=== PATIENT | female | born 1965 | race African-American/Black ===

== ENCOUNTER 2016-09-29 11:26 | Inpatient (IN) | payer OTHER ==
[2016-09-29 12:31] VITALS: BMI 18.6
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
[2016-09-29] MEDS ORDERED: ACETAMINOPHEN 325 MG TABLET (FP) PO PRN (16:44)
[2016-09-29] MEDS ORDERED: MAG HYDROX/AL HYDROX/SIMETH 30 ML UNIT-DOSE CUP PO PRN (16:44)
[2016-09-29] MEDS ORDERED: hydrOXYzine PAMOATE 50 MG CAPSULE (FP) PO PRN (16:44)
[2016-09-29] MEDS ORDERED: NICOTINE POLACRILEX 2 MG GUM BC PRN (16:44)
[2016-09-29] MEDS ORDERED: MAGNESIUM CITRATE 300 ML BOTTLE PO PRN (16:44)
[2016-09-29] MEDS ORDERED: MENTHOL/PHENOL 1 EACH UD MM PRN (16:44)
[2016-09-29] MEDS ORDERED: P-EPHED 60MG/TRIPROLIDI 2.5MG TABLET PO PRN (16:44)
[2016-09-29] MEDS ORDERED: LOPERAMIDE HCL 2 MG CAPSULE PO PRN (16:44)
[2016-09-29] MEDS ORDERED: MAGNESIUM HYDROX 2400MG/30ML ORAL SUSPENSION 30 ML CUP PO PRN (16:44)
[2016-09-29] MEDS ORDERED: guaiFENesin/D-METHORPHAN HB 10 ML UNIT-DOSE CUPS PO PRN (16:44)
[2016-09-29] MEDS ORDERED: diphenhydrAMINE HCL 50 MG CAPSULE PO PRN (16:44)
[2016-09-29] MEDS ORDERED: TUBERCULIN PPD 5 TU/0.1ML VIAL ID ONE (18:39)
[2016-09-29] MEDS: THIAMINE HCL 100 MG TABLET (FP) PO SCH (22:10)
[2016-09-29] MEDS: RITONAVIR 100 MG TABLET PO SCH (22:11)
[2016-09-29] MEDS: NICOTINE 14 MG/24 HOURS TOPICAL PATCH TD SCH (22:12)
[2016-09-29] MEDS ORDERED: PT OWN MED DRAWER 7, Y5N ONE ×2 (23:56→23:58)
[2016-09-29] MEDS: ALBUTEROL SO4 6.7 GM HFA INHALER IH PRN (23:57)
[2016-09-30] MEDS: LEVOTHYROXINE NA 25 MCG TABLET (FP) PO SCH (06:59)
[2016-09-30] MEDS: DRONABINOL 2.5 MG CAPSULE PO SCH ×2 (06:59→16:35)
[2016-09-30] MEDS ORDERED: PT OWN MED DRAWER 7, Y5N ONE (09:10)
--- NOTE | 2016-09-30 09:17 | EKG ---
Test Reason : Blood Pressure : / mmHG Vent. Rate : 078 BPM Atrial Rate : 078 BPM P-R Int : 158 ms QRS Dur : 100 ms QT Int : 396 ms P-R-T Axes : 080 073 066 degrees QTc Int : 451 ms NORMAL SINUS RHYTHM NORMAL ECG NO PREVIOUS ECGS AVAILABLE Confirmed by BERNADETTE BALLARD MD ([id number]) on 09/30/2016 9:16:51 AM Referred By: Tiara Driver Confirmed By:BERNADETTE BALLARD MD
[2016-09-30 09:57] LABS: MCH 32.5 pg (25.7-33.7); MCHC 32.4 g/dl (32.0-36.0); MEAN CELL VOLUME 100.2 fl (80-96); MEAN PLT VOLUME 9.4 fl (7.5-11.1); PLATELET COUNT 364 K/MM3 (134-434); RDW 15.4 % (11.6-15.6)
--- NOTE | 2016-09-30 10:03 | HP ---
Psychiatrist Admission - Data Date of interview: 09/30/16 Admission source: [facility]. Identifying data: This is the second admission to [address] [place] [address] for this 51 years old single AA female,no children,resides in supportive housing,on [place]. Medical History: Significant for HIV+,AIDS,Hypothyroidism, Psychiatric History: First contact with psychiatrist was about 4 yo when her has been dx with Lung Cancer.She started to see a private psychiatrist to address her depressed mood,anxiety,sleeping difficulties.Patient was placed on Zoloft with some response.She reports non compliance with medications .Patient was attending [facility] for a while.No psychiatric care ,obtaining her medications from PCP. Physical/Sexual Abuse/Trauma History: denies Vital Signs: Vital Signs - 24 hr 09/29/16 09/30/16 09/30/16 12:28 00:30 03:30 Temperature 97.2 F L Pulse Rate 86 Respiratory 18 17 16 Rate Blood Pressure 153/84 09/30/16 07:22 Temperature 98.1 F Pulse Rate 76 Respiratory 18 Rate Blood Pressure 136/87 Allergies/Adverse Reactions: Allergies Allergy/AdvReac Type Severity Reaction Status Date / Time honey Allergy Hives Verified 09/29/16 13:37 No Known Drug Allergies Allergy Verified 09/29/16 18:23 NKDA Allergy Uncoded 09/29/16 13:38 Date of last physical exam: 09/29/16 Concur with the findings of this exam: Yes - Substance Abuse/Tx History Hx Alcohol Use: Yes (socially) Hx Substance Use: Yes (reports st cocaine/crack since 27 yo,marijuana since school age (on Marinol) Substance Use Type: Alcohol, Cocaine, Marijuana Hx Substance Use Treatment: Yes (completed [place] 3-4 yo) - Admission Criteria Previous failed treatment: Yes Poor recovery environment: Yes Comorbidities: Yes Lacks judgement: Yes Mental Status Exam - Mental Status Exam Alert and Oriented to: Time, Place, Person Cognitive Function: Grossly Intact Patient Appearance: Unkempt Mood: Sad, Anxious, Expansive, Irritable Affect: Mood Congruent Patient Behavior: Cooperative Speech Pattern: Clear Voice Loudness: Normal Thought Process: Goal Oriented Thought Disorder: Not Present Hallucinations: Denies Suicidal Ideation: Denies Homicidal Ideation: Denies Insight/Judgement: Fair Sleep: Difficulty falling asleep Appetite: Weight loss Muscle strength/Tone: Normal Gait/Station: Normal Psychiatric Findings - Problem List ([place] 1, 2,3) (1) COPD with chronic bronchitis Current Visit: Yes Status: Chronic (2) Cannabis dependence, uncomplicated Current Visit: Yes Status: Chronic (3) Cocaine dependence, uncomplicated Current Visit: Yes Status: Chronic (4) Essential hypertension Current Visit: Yes Status: Chronic (5) HIV positive Current Visit: Yes Status: Chronic (6) Hypothyroidism Current Visit: Yes Status: Chronic Qualifiers: Hypothyroidism type: acquired Qualified Code(s): E03.9 - Hypothyroidism, unspecified (7) Nicotine dependence Current Visit: Yes Status: Chronic Qualifiers: Nicotine product type: cigarettes Substance use status: uncomplicated Qualified Code(s): F17.210 - Nicotine dependence, cigarettes, uncomplicated (8) Pinched nerve in neck Current Visit: Yes Status: Chronic (9) Substance induced mood disorder Current Visit: Yes Status: Chronic - Initial Treatment Plan Initial Treatment Plan: Restart Seroquel 25 mg po bid and 150 mg po hs,start Lexapro 5 mg po daily.Will monitor progress.
[2016-09-30 10:26] LABS: ALBUMIN 3.8 g/dl (3.4-5.0); BILIRUBIN,TOTAL 0.4 mg/dL (0.2-1.0); CALCIUM 9.9 mg/dL (8.5-10.1); COCKROFT - GAULT 47.974; CREATININE 1.1 mg/dL (0.55-1.02); TOT PROT 8.5 g/dl (6.4-8.2)
[2016-09-30] MEDS ORDERED: QUEtiapine FUMARATE 25 MG TABLET (FP) PO SCH (10:30)
[2016-09-30] MEDS: PRENATAL VITAMINS W/ FOLIC ACID TABLET (FP) PO SCH (10:41)
[2016-09-30] MEDS: DARUNAVIR ETHANOLATE 800 MG TAB PO SCH (10:41)
[2016-09-30] MEDS: PANTOPRAZOLE 40 MG TABLET (FP) PO SCH (10:41)
[2016-09-30] MEDS: LISINOPRIL 20 MG TABLET (FP) PO SCH (10:42)
[2016-09-30] MEDS: NICOTINE 14 MG/24 HOURS TOPICAL PATCH TD SCH (10:42)
[2016-09-30] MEDS: RITONAVIR 100 MG TABLET PO SCH (11:10)
[2016-09-30] MEDS: ESCITALOPRAM OXALATE 10 MG TABLET (FP) PO SCH (12:03)
[2016-09-30 14:36] LABS: URINE APPEARANCE CLEAR; URINE BILIRUBIN NEGATIVE (NEGATIVE); URINE BLOOD NEGATIVE (NEGATIVE); URINE COLOR YELLOW; URINE GLUCOSE (UA) NEGATIVE (NEGATIVE); URINE KETONE NEGATIVE (NEGATIVE); URINE NITRITE NEGATIVE (NEGATIVE); URINE UROBILINOGEN NEGATIVE E.U./dl (0.2-1.0)
[2016-09-30 14:38] LABS: URINE LEUK ESTERASE 3+ (NEGATIVE); URINE PROTEIN 1+ (NEGATIVE)
[2016-09-30 14:40] LABS: URINE MUCUS RARE; URINE RBC 1 /hpf (0-3); URINE WBC 69 /hpf (3-5)
[2016-09-30] MEDS: QUEtiapine FUMARATE 25 MG TABLET (FP) PO SCH (15:35)
[2016-09-30] MEDS: QUEtiapine FUMARATE 50 MG TABLET PO SCH (21:56)
[2016-09-30] MEDS: THIAMINE HCL 100 MG TABLET (FP) PO SCH (21:56)
[2016-10-01] MEDS: LEVOTHYROXINE NA 25 MCG TABLET (FP) PO SCH (06:49)
[2016-10-01] MEDS: DRONABINOL 2.5 MG CAPSULE PO SCH ×2 (06:49→16:43)
[2016-10-01] MEDS: RITONAVIR 100 MG TABLET PO SCH (10:37)
[2016-10-01] MEDS: ESCITALOPRAM OXALATE 10 MG TABLET (FP) PO SCH (10:37)
[2016-10-01] MEDS: PRENATAL VITAMINS W/ FOLIC ACID TABLET (FP) PO SCH (10:37)
[2016-10-01] MEDS: LISINOPRIL 20 MG TABLET (FP) PO SCH (10:37)
[2016-10-01] MEDS: PANTOPRAZOLE 40 MG TABLET (FP) PO SCH (10:37)
[2016-10-01] MEDS: DARUNAVIR ETHANOLATE 800 MG TAB PO SCH (10:37)
[2016-10-01] MEDS: NICOTINE 14 MG/24 HOURS TOPICAL PATCH TD SCH (10:39)
[2016-10-01] MEDS: QUEtiapine FUMARATE 25 MG TABLET (FP) PO SCH ×2 (10:39→13:53)
[2016-10-01] MEDS: THIAMINE HCL 100 MG TABLET (FP) PO SCH (21:46)
[2016-10-01] MEDS: QUEtiapine FUMARATE 50 MG TABLET PO SCH (21:46)
[2016-10-01] MEDS: ALBUTEROL SO4 6.7 GM HFA INHALER IH PRN (21:48)
[2016-10-01] MEDS ORDERED: PT OWN MED DRAWER 7, Y5N ONE (21:48)
[2016-10-02] MEDS: DRONABINOL 2.5 MG CAPSULE PO SCH ×2 (06:36→17:32)
[2016-10-02] MEDS: LEVOTHYROXINE NA 25 MCG TABLET (FP) PO SCH (06:37)
[2016-10-02] MEDS: NICOTINE 14 MG/24 HOURS TOPICAL PATCH TD SCH (09:55)
[2016-10-02] MEDS: ESCITALOPRAM OXALATE 10 MG TABLET (FP) PO SCH (09:55)
[2016-10-02] MEDS: PRENATAL VITAMINS W/ FOLIC ACID TABLET (FP) PO SCH (09:56)
[2016-10-02] MEDS: RITONAVIR 100 MG TABLET PO SCH (09:56)
[2016-10-02] MEDS: PANTOPRAZOLE 40 MG TABLET (FP) PO SCH (09:56)
[2016-10-02] MEDS: DARUNAVIR ETHANOLATE 800 MG TAB PO SCH (09:56)
[2016-10-02] MEDS: LISINOPRIL 20 MG TABLET (FP) PO SCH (09:57)
[2016-10-02] MEDS: QUEtiapine FUMARATE 25 MG TABLET (FP) PO SCH ×2 (09:57→13:06)
[2016-10-02] MEDS: QUEtiapine FUMARATE 50 MG TABLET PO SCH (21:49)
[2016-10-02] MEDS: THIAMINE HCL 100 MG TABLET (FP) PO SCH (21:50)
[2016-10-03] MEDS: LEVOTHYROXINE NA 25 MCG TABLET (FP) PO SCH (06:40)
[2016-10-03] MEDS: DRONABINOL 2.5 MG CAPSULE PO SCH ×2 (06:41→17:07)
[2016-10-03] MEDS ORDERED: PT OWN MED DRAWER 7, Y5N ONE ×3 (08:58→11:25)
[2016-10-03] MEDS: PRENATAL VITAMINS W/ FOLIC ACID TABLET (FP) PO SCH (10:38)
[2016-10-03] MEDS: DARUNAVIR ETHANOLATE 800 MG TAB PO SCH (10:38)
[2016-10-03] MEDS: PANTOPRAZOLE 40 MG TABLET (FP) PO SCH (10:38)
[2016-10-03] MEDS: QUEtiapine FUMARATE 25 MG TABLET (FP) PO SCH ×2 (10:38→13:10)
[2016-10-03] MEDS: LISINOPRIL 20 MG TABLET (FP) PO SCH (10:38)
[2016-10-03] MEDS: RITONAVIR 100 MG TABLET PO SCH (10:39)
[2016-10-03] MEDS: ESCITALOPRAM OXALATE 10 MG TABLET (FP) PO SCH (10:39)
[2016-10-03] MEDS: NICOTINE 14 MG/24 HOURS TOPICAL PATCH TD SCH (10:39)
[2016-10-03] MEDS: ALBUTEROL SO4 6.7 GM HFA INHALER IH PRN (11:25)
[2016-10-03] MEDS: QUEtiapine FUMARATE 50 MG TABLET PO SCH (21:40)
[2016-10-03] MEDS: THIAMINE HCL 100 MG TABLET (FP) PO SCH (21:40)
[2016-10-04] MEDS: LEVOTHYROXINE NA 25 MCG TABLET (FP) PO SCH (06:48)
[2016-10-04] MEDS: DRONABINOL 2.5 MG CAPSULE PO SCH ×2 (06:48→17:47)
[2016-10-04] MEDS ORDERED: PT OWN MED DRAWER 7, Y5N ONE ×3 (08:48→13:17)
[2016-10-04] MEDS: PANTOPRAZOLE 40 MG TABLET (FP) PO SCH (10:33)
[2016-10-04] MEDS: LISINOPRIL 20 MG TABLET (FP) PO SCH (10:33)
[2016-10-04] MEDS: ESCITALOPRAM OXALATE 10 MG TABLET (FP) PO SCH (10:33)
[2016-10-04] MEDS: PRENATAL VITAMINS W/ FOLIC ACID TABLET (FP) PO SCH (10:33)
[2016-10-04] MEDS: DARUNAVIR ETHANOLATE 800 MG TAB PO SCH (10:33)
[2016-10-04] MEDS: RITONAVIR 100 MG TABLET PO SCH (10:35)
[2016-10-04] MEDS: NICOTINE 14 MG/24 HOURS TOPICAL PATCH TD SCH (10:36)
[2016-10-04] MEDS: QUEtiapine FUMARATE 25 MG TABLET (FP) PO SCH ×2 (11:25→13:19)
[2016-10-04] MEDS: THIAMINE HCL 100 MG TABLET (FP) PO SCH (21:47)
[2016-10-04] MEDS: QUEtiapine FUMARATE 50 MG TABLET PO SCH (21:47)
[2016-10-05] MEDS: LEVOTHYROXINE NA 25 MCG TABLET (FP) PO SCH (06:28)
[2016-10-05] MEDS: DRONABINOL 2.5 MG CAPSULE PO SCH ×2 (06:28→17:36)
[2016-10-05] MEDS ORDERED: PT OWN MED DRAWER 7, Y5N ONE (09:13)
[2016-10-05] MEDS: RITONAVIR 100 MG TABLET PO SCH (10:39)
[2016-10-05] MEDS: PANTOPRAZOLE 40 MG TABLET (FP) PO SCH (10:39)
[2016-10-05] MEDS: NICOTINE 14 MG/24 HOURS TOPICAL PATCH TD SCH (10:39)
[2016-10-05] MEDS: DARUNAVIR ETHANOLATE 800 MG TAB PO SCH (10:39)
[2016-10-05] MEDS: PRENATAL VITAMINS W/ FOLIC ACID TABLET (FP) PO SCH (10:39)
[2016-10-05] MEDS: LISINOPRIL 20 MG TABLET (FP) PO SCH (10:40)
[2016-10-05] MEDS: QUEtiapine FUMARATE 25 MG TABLET (FP) PO SCH ×2 (10:40→13:18)
[2016-10-05] MEDS: ESCITALOPRAM OXALATE 10 MG TABLET (FP) PO SCH (10:40)
[2016-10-05] MEDS: ALBUTEROL SO4 6.7 GM HFA INHALER IH PRN (11:43)
[2016-10-05] MEDS: QUEtiapine FUMARATE 50 MG TABLET PO SCH (22:54)
[2016-10-05] MEDS: THIAMINE HCL 100 MG TABLET (FP) PO SCH (22:54)
[2016-10-06] MEDS: DRONABINOL 2.5 MG CAPSULE PO SCH ×2 (07:06→17:30)
[2016-10-06] MEDS: LEVOTHYROXINE NA 25 MCG TABLET (FP) PO SCH (07:07)
[2016-10-06] MEDS ORDERED: PT OWN MED DRAWER 7, Y5N ONE ×2 (08:58→19:38)
[2016-10-06] MEDS: PRENATAL VITAMINS W/ FOLIC ACID TABLET (FP) PO SCH (10:53)
[2016-10-06] MEDS: RITONAVIR 100 MG TABLET PO SCH (10:53)
[2016-10-06] MEDS: DARUNAVIR ETHANOLATE 800 MG TAB PO SCH (10:53)
[2016-10-06] MEDS: QUEtiapine FUMARATE 25 MG TABLET (FP) PO SCH ×2 (10:53→13:56)
[2016-10-06] MEDS: LISINOPRIL 20 MG TABLET (FP) PO SCH (10:53)
[2016-10-06] MEDS: PANTOPRAZOLE 40 MG TABLET (FP) PO SCH (10:53)
[2016-10-06] MEDS: NICOTINE 14 MG/24 HOURS TOPICAL PATCH TD SCH (10:54)
[2016-10-06] MEDS: ESCITALOPRAM OXALATE 10 MG TABLET (FP) PO SCH (10:54)
[2016-10-06] MEDS: THIAMINE HCL 100 MG TABLET (FP) PO SCH (21:49)
[2016-10-06] MEDS: QUEtiapine FUMARATE 50 MG TABLET PO SCH (21:49)
[2016-10-07] MEDS: DRONABINOL 2.5 MG CAPSULE PO SCH (06:30)
[2016-10-07] MEDS: LEVOTHYROXINE NA 25 MCG TABLET (FP) PO SCH (06:30)
[2016-10-07] MEDS ORDERED: PT OWN MED DRAWER 7, Y5N ONE (08:37)
[2016-10-07] MEDS: ESCITALOPRAM OXALATE 10 MG TABLET (FP) PO SCH (10:28)
[2016-10-07] MEDS: PRENATAL VITAMINS W/ FOLIC ACID TABLET (FP) PO SCH (10:28)
[2016-10-07] MEDS: PANTOPRAZOLE 40 MG TABLET (FP) PO SCH (10:28)
[2016-10-07] MEDS: DARUNAVIR ETHANOLATE 800 MG TAB PO SCH (10:28)
[2016-10-07] MEDS: RITONAVIR 100 MG TABLET PO SCH (10:28)
[2016-10-07] MEDS: NICOTINE 14 MG/24 HOURS TOPICAL PATCH TD SCH (10:29)
[2016-10-07] MEDS: QUEtiapine FUMARATE 25 MG TABLET (FP) PO SCH ×2 (10:30→13:16)
[2016-10-07] MEDS: LISINOPRIL 20 MG TABLET (FP) PO SCH (10:31)
[2016-10-07] MEDS: THIAMINE HCL 100 MG TABLET (FP) PO SCH (22:01)
[2016-10-07] MEDS: QUEtiapine FUMARATE 50 MG TABLET PO SCH (22:01)
[2016-10-08] MEDS: LEVOTHYROXINE NA 25 MCG TABLET (FP) PO SCH (07:07)
[2016-10-08] MEDS: DRONABINOL 2.5 MG CAPSULE PO SCH ×2 (07:08→17:16)
[2016-10-08] MEDS ORDERED: PT OWN MED DRAWER 7, Y5N ONE ×2 (09:04→17:48)
[2016-10-08] MEDS: PRENATAL VITAMINS W/ FOLIC ACID TABLET (FP) PO SCH (10:51)
[2016-10-08] MEDS: DARUNAVIR ETHANOLATE 800 MG TAB PO SCH (10:52)
[2016-10-08] MEDS: ESCITALOPRAM OXALATE 10 MG TABLET (FP) PO SCH (10:52)
[2016-10-08] MEDS: NICOTINE 14 MG/24 HOURS TOPICAL PATCH TD SCH (10:52)
[2016-10-08] MEDS: RITONAVIR 100 MG TABLET PO SCH (10:52)
[2016-10-08] MEDS: LISINOPRIL 20 MG TABLET (FP) PO SCH (10:53)
[2016-10-08] MEDS: PANTOPRAZOLE 40 MG TABLET (FP) PO SCH (10:53)
[2016-10-08] MEDS: QUEtiapine FUMARATE 25 MG TABLET (FP) PO SCH ×2 (10:53→13:09)
[2016-10-08] MEDS: THIAMINE HCL 100 MG TABLET (FP) PO SCH (21:57)
[2016-10-08] MEDS: QUEtiapine FUMARATE 50 MG TABLET PO SCH (21:57)
[2016-10-09] MEDS: DRONABINOL 2.5 MG CAPSULE PO SCH (06:47)
[2016-10-09] MEDS: LEVOTHYROXINE NA 25 MCG TABLET (FP) PO SCH (06:48)
[2016-10-09 07:48] VITALS: TEMP 98
[2016-10-09] MEDS ORDERED: PT OWN MED DRAWER 7, Y5N ONE (09:04)
[2016-10-09 09:47] VITALS: BP 104/67; PULSE 103
[2016-10-09] MEDS: PANTOPRAZOLE 40 MG TABLET (FP) PO SCH (11:02)
[2016-10-09] MEDS: DARUNAVIR ETHANOLATE 800 MG TAB PO SCH (11:02)
[2016-10-09] MEDS: QUEtiapine FUMARATE 25 MG TABLET (FP) PO SCH ×2 (11:02→13:52)
[2016-10-09] MEDS: RITONAVIR 100 MG TABLET PO SCH (11:03)
[2016-10-09] MEDS: PRENATAL VITAMINS W/ FOLIC ACID TABLET (FP) PO SCH (11:03)
[2016-10-09] MEDS: ESCITALOPRAM OXALATE 10 MG TABLET (FP) PO SCH (11:03)
[2016-10-09] MEDS: LISINOPRIL 20 MG TABLET (FP) PO SCH (11:04)
[2016-10-09] MEDS: NICOTINE 14 MG/24 HOURS TOPICAL PATCH TD SCH (11:04)
--- NOTE | 2016-10-09 21:47 | PN ---
S Progress Note Note: on-call notes: was called by nurse for discharge order, patient asked to leave earlier, e-scripts provided, discharge order placed.
== END 2016-10-09 16:16 | disposition home or self-care (01) | DRG 772 ==
LOC: YASAS 11:26 → Y3E 14:23 → Y3N 09-30 17:48 → Y3E 09-30 17:50
PROVIDERS: ADMIT Psychiatry & Neurology Psychiatry; ATTEND Psychiatry & Neurology Psychiatry
PROC: HZ42ZZZ Group Counseling for Substance Abuse Treatment, Cognitive-Behavioral (ICD-10-PCS; principal; 2016-09-29)
DX: F14.20 Cocaine dependence, uncomplicated (principal); F12.20 Cannabis dependence, uncomplicated; F17.210 Nicotine dependence, cigarettes, uncomplicated; F19.24 Other psychoactive substance dependence with psychoactive substance-induced mood disorder; J44.9 Chronic obstructive pulmonary disease, unspecified; I10 Essential (primary) hypertension; Z21 Asymptomatic human immunodeficiency virus [HIV] infection status; E03.9 Hypothyroidism, unspecified; G58.8 Other specified mononeuropathies; K21.9 Gastro-esophageal reflux disease without esophagitis; A63.0 Anogenital (venereal) warts; Z86.2 Personal history of diseases of the blood and blood-forming organs and certain disorders involving the immune mechanism; Z87.440 Personal history of urinary (tract) infections
CPT/HCPCS: 36415; 80053; 81003; 81015; 85027; 86593; 93005; 93010